=== PATIENT | female | born 1950 | race African-American/Black ===

== ENCOUNTER 2016-12-18 16:10 | Inpatient (IN) ==
[2016-12-18] MEDS ORDERED: KETOROLAC 30 MG/1 ML VIAL IV STA (16:56)
[2016-12-18] MEDS ORDERED: NITROGLYCERIN 2% OINT 1 INCH/GM PACK TOP STA (16:56)
[2016-12-18] MEDS ORDERED: ASPIRIN 325 MG TABLET PO STA (16:56)
[2016-12-18] MEDS ORDERED: ONDANSETRON 4 MG/2 ML VIAL IV STA (16:56)
--- NOTE | 2016-12-18 16:59 | EKG Report ---
Stationary ECG Study 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
--- NOTE | 2016-12-18 16:59 | Emergency Department Note ---
Arrival - Arrival Chief Complaint: Chest Pain Stated Complaint: CHEST PAIN ED Nursing Triage Note: PT WITH CP, JUST SEEN BY DR BE, PT IS SCHEDULED TO HAVE HEART CATH IN THE AM Mode of Arrival: Ambulatory Limitations: No Limitations Source: Patient Time Seen by Provider: 12/18/16 16:56 - History of Present Illness HPI Narrative: This 66-year-old black female presents with onset of chest pain while walking over from Dr. Be's office for preop studies in preparation for cardiac cath tomorrow. The patient states that associated with this chest pain shortness of breath and nausea. She denies diaphoresis or vomiting. She has no prior cardiac history but does have hypertension diabetes. Currently she appears quite anxious. She describes the pain as along the left anterior axillary line and tender to palpation. In bed at rest she is in no acute medical distress. Onset (ago): hour(s) (Patient presents 1 hour post onset of symptoms) Consistency: constant Severity: moderate Severity scale (1-10): 5 Quality: aching Allergies/Adverse Reactions: Allergies Allergy/AdvReac Type Severity Reaction Status Date / Time citric acid Allergy RASH Verified 12/18/16 16:26 codeine Allergy RASH Verified 12/18/16 16:26 iodine Allergy RASH Verified 12/18/16 16:26 lisinopril Allergy RASH Verified 12/18/16 16:26 morphine Allergy RASH Verified 12/18/16 16:26 peanut Allergy RASH Verified 12/18/16 16:26 Penicillins Allergy RASH Verified 12/18/16 16:26 sulfamethoxazole Allergy RASH Verified 12/18/16 16:26 [From Bactrim] trimethoprim [From Bactrim] Allergy RASH Verified 12/18/16 16:26 Home Medications: Home Medications Medication Instructions Recorded Confirmed Type ALPRAZolam [Alprazolam] 0.25 mg PO BID PRN 12/18/16 12/18/16 History Albuterol Inhaler [Proventil 2 puff INH Q6H PRN 12/18/16 12/18/16 History Inhaler] Atorvastatin [Lipitor] 40 mg PO BEDTIME 12/18/16 12/18/16 History Ciprofloxacin Tab [Cipro Tab] 500 mg PO BID 12/18/16 12/18/16 History HYDROcodone/ACETAMIN 10-325 [Thomas 1 tablet PO Q4H PRN 12/18/16 12/18/16 History 10-325] Insulin Detemir [Levemir FlexPen] 45 unit SUBCUT BEDTIME 12/18/16 12/18/16 History Insulin Lispro Protamin/Lispro 0 unit SUBCUT TID W/MEALS PRN 12/18/16 12/18/16 History [HumaLOG Mix 75-25 KwikPen] Oxycodone HCl/Acetaminophen 1 each PO Q6H PRN 12/18/16 12/18/16 History [Percocet 10-325 mg Tablet] Pantoprazole Sodium 40 mg PO BID 12/18/16 12/18/16 History Sertraline [Zoloft] 50 mg PO BEDTIME 12/18/16 12/18/16 History Zolpidem [Ambien] 5 mg PO BEDTIME 12/18/16 12/18/16 History amLODIPine [Norvasc] 5 mg PO DAILY 12/18/16 12/18/16 History Review of System - Review of System 12 point system: reviewed and no additional remarkable complaints except as stated - Review of System Constitutional: Present: as per HPI Respiratory: Present: as per HPI Cardiovascular: Present: as per HPI Gastrointestinal: Present: as per HPI Medical,Surgical,& Family Hx - Medical History Cardio: History of: Hypertension Endocrine: History of: Diabetes Mellitus (IDDM) - Social History Smoking Status: Unknown if ever smoked Exam Physical Examination: GENERAL: Well developed, well nourished black female in no acute distress. HEENT: Normocephalic. No trauma. Moist mucous membranes. EOMI. PERRLA. ENT NML NECK: Supple. No adenopathy. CARDIAC: Regular. No murmurs. Heart rate 82 CHEST: Clear to auscultation. No respiratory distress. O2 sat 100% ABDOMEN: Soft. Nontender. Active bowel sounds. EXTREMITIES: No trauma. Normal ROM. No pedal edema. SKIN: No diaphoresis. No rash. NEURO: Alert. Anxious. Oriented 3. Motor, sensory, vibratory intact. No focal deficits. Vital Signs: Vital Signs Temperature 97.4 F L 12/18/16 17:15 Pulse Rate 73 12/18/16 19:11 Respiratory Rate 21 12/18/16 19:11 Blood Pressure 130/109 12/18/16 19:11 O2 Sat by Pulse Oximetry 100 12/18/16 19:11 Course - Reevaluation(s) Reevaluation #1: Discussed the negative results of her evaluation although the patient was extremely anxious and concerned desirous of admission. - Consultations Consultation #1: Discussed the situation with Dr. Valdes who agreed to admission overnight given the patient's anxiety level. Results - Labs CBC & BMP: 12/18/16 17:10 12/18/16 17:10 Labs: I have noted the dirty urine. I have also noted the negative cardiac's but mild increase in blood glucose. - Impressions EKG: Sinus rhythm at [address] changes poor R-wave progression anteriorly, no acute injury pattern noted. - Diagnostic Findings Procedure: Chest x-ray: image reviewed by me, report reviewed by me (No acute disease, left lower lobe atelectasis with questionable small effusion, venous access catheter noted.) Disposition Clinical Impression: Chest pain, Hypertension, Diabetes Case discussed with: patient, patient's family Disposition: Still a Patient Condition: Stable Time of Disposition: 19:18
[2016-12-18] MEDS ORDERED: NITROGLYCERIN 2% OINT 1 INCH/GM PACK TOP ONE (17:05)
[2016-12-18] MEDS ORDERED: KETOROLAC 30 MG/1 ML VIAL ONE (17:06)
[2016-12-18] MEDS ORDERED: ASPIRIN 325 MG TABLET ONE (17:06)
[2016-12-18] MEDS ORDERED: ONDANSETRON 4 MG/2 ML VIAL ONE (17:06)
[2016-12-18 17:20] LABS: Basophils % 0.5 % (0.0-0.8); Eosinophils # 0.2 10*3/uL (0.0-0.87); Eosinophils % 2.8 % (0.00-10.9); Hematocrit 33.6 VOL% (35.7-47.0); Immature Granulocytes % 0.2 %; Immature Granulocytes Absolute 0.01 #; Lymphocytes % 34.8 % (21.3-54.2); Mean Corpuscular HGB Conc 32.7 GM/DL (32-36); Mean Corpuscular Hemoglobin 30 PG (27-34); Mean Corpuscular Volume 92.6 FL (87-102); Monocytes # 0.4 10*3/uL (0.11-0.8); Monocytes % 6.6 % (1.7-12.7); Neutrophils # 3.2 10*3/uL (1.4-7.4); Neutrophils % 55.1 % (38.7-73.9); Platelet Count 243 T/CUMM (130-400); Red Blood Count 3.63 MC/CUMM (3.8-5.5); Red Cell Distribution Width 13.8 % (9.3-17.3); White Blood Count 5.8 T/CUMM (4-12)
--- NOTE | 2016-12-18 17:29 | XRay Report ---
XR chest 2V Date: 12/18/2016 4:56 PM History: Chest pain Comparison: 07/15/2014 Technique: PA and lateral chest Findings: The heart is minimally enlarged with left subclavian venous access catheter with tip in right atrium. Chronic scarring at the left lung base. Minimal atelectasis/infiltration at the lung bases with very small left pleural effusion. Stable mediastinum with degenerative changes. Impression: Venous access catheter in satisfactory position. Chronic scarring at the left lung base with minimal atelectasis/infiltration at the lung bases with very small left pleural effusion. PROCEDURE INTERPRETED AT [facility] DEPARTMENT OF RADIOLOGY Final Report Signed by: Dr. Kinga Shrestha
[2016-12-18 17:31] LABS: PT Patient Result 10.8 SECS
[2016-12-18 17:40] LABS: Partial Thromboplastin Time 73.2 SECS (0-40)
[2016-12-18 18:06] LABS: Apearance,Urine CLOUDY (Clear); Bacteria,Urine Occasional /HPF (Few); Bilirubin,Urine Negative (Negative); Blood, Urine Negative (Negative); Glucose,Urine (UA) >=500 mg/dL (Negative); Ketones,Urine Negative (Negative); Mucus,Urine Occasional /LPF (Occasional); Nitrite,Urine Negative (Negative); Protein,Urine Negative; RBC,Urine 99 /HPF (0-4); Squamous Epithelial Cell,Urine Occasional /HPF (0-10); Urine Color Yellow (Yellow); Urine Urobilinogen < 2.0 EU/DL (0.2-1.0); WBC,Urine 142 /HPF (0-6)
[2016-12-18] MEDS ORDERED: LEVOFLOXACIN 750 MG TABLET PO STA (18:10)
[2016-12-18 18:12] LABS: Barbiturates Screen,Urine Negative (Negative); Benzodiazepines Screen,Urine Positive (Negative); Cannabinoid Screen,Urine Positive (Negative); Opiate Screen,Urine Negative (Negative); Phencyclidine Screen,Urine Negative (Negative)
[2016-12-18] MEDS ORDERED: LEVOFLOXACIN 750 MG TABLET ONE (18:13)
[2016-12-18 18:48] LABS: Alanine Aminotransferase 21 U/L (13-56); Albumin 3.3 G/DL (3.4-5.0); Alkaline Phosphatase 135 U/L (45-117); Aspartate Amino Transferase 16 U/L (0-37); Blood Urea Nitrogen 14 MG/DL (7-18); Glucose 203 MG/DL (74-106); Osmolality,Calculated 292.8 MOS/KG (273-304); Potassium 3.8 MMOL/L (3.5-5.1); Sodium 144 MMOL/L (136-145); Total Protein 6.2 G/DL (6.4-8.3); Troponin I Only < 0.015 NG/ML (0.00-0.045)
[2016-12-18 18:49] LABS: Calcium 8.5 MG/DL (8.5-10.1)
[2016-12-18] MEDS ORDERED: LORazepam 2 MG/1 ML VIAL IV PRN (19:24)
[2016-12-18] MEDS ORDERED: PANTOPRAZOLE 40 MG VIAL IV STA (19:24)
[2016-12-18] MEDS ORDERED: hydrALAZINE 20 MG/1 ML VIAL IV PRN (19:24)
[2016-12-18] MEDS ORDERED: PANTOPRAZOLE 40 MG VIAL IV ONE (19:38)
[2016-12-18] MEDS ORDERED: POTASSIUM CHLORIDE RIDER 10 MEQ in PREMIX 1 EACH IV PRN (20:47)
[2016-12-18] MEDS ORDERED: MAGNESIUM SULF RIDER 2 GM in PREMIX 1 EACH IV PRN (20:47)
[2016-12-18] MEDS ORDERED: ALPRAZolam 0.25 MG TABLET PO PRN (20:49)
[2016-12-18] MEDS ORDERED: oxyCODONE/ACETAMINOPHEN 5-325 MG TABLET PO PRN (20:49)
[2016-12-18] MEDS ORDERED: GLUCAGON 1 MG VIAL IM PRN (21:06)
[2016-12-18] MEDS ORDERED: DEXTROSE 50% 25 GM/50 ML VIAL IV PRN (21:06)
--- NOTE | 2016-12-18 21:06 | History and Physical Update ---
Sedation H&P Update - History and Physical H&P was reviewed, the patient examined and there: are no changes in the patients condition since last H&P was completed. - Dictation Physical: refer to H&P completed by admitting physician - Physical Exam Mental Status: alert and oriented Heart: regular rate and rhythm Lung: clear to auscultation Abdomen: within normal limits Vitals: within normal limits - Sedation Plan for Sedation: minimal Patient Consent: Procedure disscussed with patient and patinet has consented., Risks and benefits were discussed with patient,including infection,, bleeding, injury to surrounding structures, seizure, temporary nerve, Patient understands and accepts potential risks/benefits and agrees to, proceed. ASA Class: II Airway Assessment: Class II: Soft palate, uvula, fauces visible
[2016-12-18] MEDS: ONDANSETRON 4 MG/2 ML VIAL IV PRN (22:54)
[2016-12-18] MEDS: INSULIN GLARGINE 100 UNIT/ML SUBCUT SCH ×2 (22:59→23:00)
[2016-12-18] MEDS: INSULIN REGULAR 100 UNIT/ML SUBCUT SCH (22:59)
[2016-12-18] MEDS ORDERED: PROMETHAZINE 25 MG/1 ML VIAL IM ONE (23:58)
[2016-12-19] MEDS: ZALEPLON 5 MG CAPSULE PO SCH ×2 (00:24→21:23)
[2016-12-19] MEDS: traMADol 50 MG TABLET PO SCH ×3 (00:24→21:23)
[2016-12-19] MEDS: ACETAMINOPHEN 325 MG TABLET PO SCH ×3 (00:24→22:32)
[2016-12-19] MEDS: SERTRALINE 100 MG TABLET PO SCH ×2 (00:25→21:25)
[2016-12-19] MEDS: GABAPENTIN 100 MG CAPSULE PO SCH ×4 (00:25→21:25)
[2016-12-19] MEDS: CARVEDILOL 3.125 MG TABLET PO SCH ×3 (00:25→21:23)
[2016-12-19] MEDS: PANTOPRAZOLE 40 MG TABLET PO SCH ×3 (00:25→21:23)
[2016-12-19] MEDS: ATORVASTATIN 40 MG TABLET PO SCH ×2 (00:25→21:23)
[2016-12-19] MEDS: CIPROFLOXACIN 500 MG TABLET PO SCH ×3 (00:25→21:23)
[2016-12-19] MEDS: NITROGLYCERIN 2% OINT 1 INCH/GM PACK TOP SCH ×3 (00:51→17:59)
[2016-12-19] MEDS ORDERED: ALBUTEROL 2.5 MG/3 ML NEB RESP TX PRN (01:00)
[2016-12-19] MEDS ORDERED: HEPARIN LOCK FLUSH 500 UNIT/5 ML SYRINGE IV ONE (02:30)
[2016-12-19] MEDS: SODIUM CHLORIDE 0.9% 1,000 ML IV SCH ×2 (07:20→15:55)
--- NOTE | 2016-12-19 07:25 | EKG Report ---
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
[2016-12-19] MEDS: INSULIN REGULAR 100 UNIT/ML SUBCUT SCH ×4 (08:53→21:26)
[2016-12-19] MEDS ORDERED: DIAZEPAM 5 MG TABLET PO ONE (09:00)
[2016-12-19] MEDS ORDERED: ASPIRIN CHEW 81 MG TABLET PO SCH (09:00)
[2016-12-19] MEDS ORDERED: diphenhydrAMINE CAP 25 MG CAPSULE PO ONE (09:00)
[2016-12-19] MEDS: ONDANSETRON 4 MG/2 ML VIAL IV PRN ×2 (09:37→23:52)
[2016-12-19] MEDS: amLODIPine 5 MG TABLET PO SCH (10:00)
[2016-12-19] MEDS ORDERED: diphenhydrAMINE 50 MG/1 ML VIAL ONE (13:30)
[2016-12-19] MEDS ORDERED: FAMOTIDINE 20 MG/2 ML VIAL IV ONE (13:30)
[2016-12-19] MEDS ORDERED: methylPREDNISolone SOD SUC 125 MG/2 ML VIAL ONE (13:30)
[2016-12-19] MEDS ORDERED: MEPERIDINE 25 MG/1 ML VIAL ONE (13:34)
[2016-12-19] MEDS ORDERED: MIDAZOLAM 2 MG/2 ML VIAL ONE (13:34)
[2016-12-19] MEDS ORDERED: LIDOCAINE 1% 20 ML VIAL ONE (13:35)
[2016-12-19] MEDS ORDERED: HEPARIN 5,000 UNIT/1 ML VIAL ONE (13:50)
[2016-12-19] MEDS ORDERED: HYDROmorphone 2 MG/1 ML VIAL ONE (14:09)
[2016-12-19] MEDS ORDERED: ACETAMINOPHEN/CODEINE 300-30 MG TABLET PO PRN (14:20)
[2016-12-19] MEDS ORDERED: GLUCAGON 1 MG VIAL IM PRN (14:20)
[2016-12-19] MEDS ORDERED: DEXTROSE 50% 25 GM/50 ML VIAL IV PRN (14:20)
--- NOTE | 2016-12-19 14:34 | Operative Note ---
Date of procedure: 12/19/16 Procedure Preformed: Left heart cath Coronary angiography Left ventriculography Angiogram of the right femoral artery--by follow-through from the left ventriculogram Angio-Seal of the right femoral artery-successful Surgeon / Physician: Rory Be Bilingual Sales Consultant: Mercy Mora Post-op diagnosis: same (Progressive chest pain consistent with unstable angina , multiple risk factors for coronary disease, progressive dyspnea on exertion, significant increased anxiety) Findings: Impression: No significant coronary disease-minimal luminal irregularities-worst narrowing was 20-30% of the ostium of the ramus intermedius-some of that finding may even be a mach effect Normal global/regional LV systolic function, LVEF greater than 55% Normal LVEDP, less than 5 mmHg Angiogram of the right femoral artery-from follow-through from the left ventriculogram Angio-Seal of the right femoral artery-successful Plan/recommendations: The patient will have risk factors optimized. The patient will be on antiplatelet medications to include aspirin 81 mg daily, indefinitely . It is apparent that her chest pain is not due to fixed, obstructive coronary disease or even spasm, based on her EKG findings and lack of enzyme rise. Thus, my suspicion is it is related to chest wall or muscle skeletal pain. Less likely could be GI related. There could be a component of anxiety which results in the sensation of the pain seeming worse than reality . She also seems to have a low pain threshold. Plan at this point would be to treat for chest wall pain and reassure her about the negative heart cath. If she continues having significant pain, I will refer her to a pain physician for management. I will have her stay on Tylenol, and tramadol for about a week. She will be on gabapentin for about a month. She will do upper body rest to allow any injury or strain of the chest to heel. Follow-up will be scheduled for about 4 weeks for me. She will see Dr. Harlan Hanna within the next 2-4 weeks, also.. My post-cath check to Addenda: I saw the patient post-cath. the groin puncture site and distal pulse are stable. vital signs are stable and the patient will be observed closely overnight. Specimens: none sent Estimated blood loss: minimal Condition: stable Anesthesia: local, conscious sedation Disposition: floor
--- NOTE | 2016-12-19 14:42 | Cardiology Operative Report ---
Date of Procedure:: 12/19/16 Post-op diagnosis: same (Progressive chest pain consistent with unstable angina , multiple risk factors for coronary disease, progressive dyspnea on exertion, significant increased anxiety) Procedure: Date of procedure: 12/19/16 Procedure Preformed: Left heart cath Coronary angiography Left ventriculography Angiogram of the right femoral artery--by follow-through from the left ventriculogram Angio-Seal of the right femoral artery-successful Surgeon / Physician: Rory Be Life Skills Educator: Mercy Mora Post-op diagnosis: same (Progressive chest pain consistent with unstable angina , multiple risk factors for coronary disease, progressive dyspnea on exertion, significant increased anxiety) procedure: The patient was prepped and draped in usual manner. Entered the right femoral artery via the Seldinger technique. I used a sheath and then used a JL4 and engaged left coronary. Multiple views were taken. I then exchanged for a JR4. Multiple views of the right coronary were taken. I then exchanged for an angled pigtail. I crossed the valve. Left ventricular end-diastolic pressures measured. Left ventriculography was done. Left ventricle pullback was done. The catheters were then removed from the patient. Please see the cath data sheets for the details of catheters used. Complications: None Hemodynamic data: LVEDP was < 5 mmHg. Angiographic data: The left main coronary was large and had minimal luminal irregularities. The left anterior descending artery was large and had minimal luminal irregularities. The left circumflex system was moderate to large and had minimal luminal irregularities in the circumflex The ramus intermedius was a large vessel which had minimal luminal irregularities. At the ostium there was maybe a 20-30% narrowing but it may be in part a mock effect because he was seen next to the LAD, circumflex, and left main. The right coronary artery was large in size, dominant vessel with the PDA. There were minimal luminal irregularities in this vessel. All 3 vessels had 3+ distal tortuosities. TAVAREZ left ventriculography revealed normal global/regional left ventricular systolic function. Overall ejection fraction was at least 55%. There is no significant mitral regurgitation. Angiogram of the right femoral artery, by follow-through from the LV gram, revealed the puncture site to be in a large vessel, above the bifurcation. It was suitable for Angio-Seal. Findings: Impression: No significant coronary disease-minimal luminal irregularities-worst narrowing was 20-30% of the ostium of the ramus intermedius-some of that finding may even be a mach effect Normal global/regional LV systolic function, LVEF greater than 55% Normal LVEDP, less than 5 mmHg Angiogram of the right femoral artery-from follow-through from the left ventriculogram Angio-Seal of the right femoral artery-successful Plan/recommendations: The patient will have risk factors optimized. The patient will be on antiplatelet medications to include aspirin 81 mg daily, indefinitely . It is apparent that her chest pain is not due to fixed, obstructive coronary disease or even spasm, based on her EKG findings and lack of enzyme rise. Thus, my suspicion is it is related to chest wall or muscle skeletal pain. Less likely could be GI related. There could be a component of anxiety which results in the sensation of the pain seeming worse than reality . She also seems to have a low pain threshold. Plan at this point would be to treat for chest wall pain and reassure her about the negative heart cath. If she continues having significant pain, I will refer her to a pain physician for management. I will have her stay on Tylenol, and tramadol for about a week. She will be on gabapentin for about a month. She will do upper body rest to allow any injury or strain of the chest to heel. Follow-up will be scheduled for about 4 weeks for me. She will see Dr. Harlan Hanna within the next 2-4 weeks, also.. My post-cath check to Addenda: I saw the patient post-cath. the groin puncture site and distal pulse are stable. vital signs are stable and the patient will be observed closely overnight. Specimens: none sent Estimated blood loss: minimal Condition: stable Anesthesia: local, conscious sedation Disposition: floor Additional CC's: Rory Hanna Anesthesia: local, minimal conscious sedation Surgeon / Physician: Rory Be Life Skills Educator: other Estimated blood loss: minimal Specimens: none sent Condition: stable Disposition: floor
[2016-12-19] MEDS: FAMOTIDINE 20 MG TABLET PO SCH ×2 (16:14→21:23)
[2016-12-19] MEDS: LIDOCAINE 5% PATCH TRANSDERM SCH (16:20)
[2016-12-19] MEDS ORDERED: predniSONE 50 MG TABLET PO ONE (18:00)
[2016-12-19] MEDS: oxyCODONE/ACETAMINOPHEN 5-325 MG TABLET PO PRN (21:24)
[2016-12-19] MEDS: INSULIN GLARGINE 100 UNIT/ML SUBCUT SCH ×2 (21:26→22:32)
[2016-12-20] MEDS ORDERED: INSULIN REGULAR 100 UNIT/ML IV ONE (06:26)
[2016-12-20 07:49] LABS: Hematocrit 34.7 VOL% (35.7-47.0); Hemoglobin 11.2 GM/DL (12.0-16.0); Immature Granulocytes % 0.6 %; Immature Granulocytes Absolute 0.04 #; Lymphocytes # 0.8 10*3/uL (1.4-4.0); Lymphocytes % 12.4 % (21.3-54.2); Mean Corpuscular HGB Conc 32.3 GM/DL (32-36); Mean Corpuscular Hemoglobin 30 PG (27-34); Mean Corpuscular Volume 93.3 FL (87-102); Mean Platelet Volume 11.2 FL (9.6-12.0); Monocytes # 0.1 10*3/uL (0.11-0.8); Neutrophils # 5.4 10*3/uL (1.4-7.4); Platelet Count 240 T/CUMM (130-400); Red Blood Count 3.72 MC/CUMM (3.8-5.5); Red Cell Distribution Width 13.8 % (9.3-17.3); White Blood Count 6.3 T/CUMM (4-12)
--- NOTE | 2016-12-20 07:55 | EKG Report ---
Stationary ECG Study [facility] Test Date: 12/20/2016 7:54:14 AM Pat Name: FOREST SUAREZ Department: Room: 241 Gender: F Department Specialist: : 1950 Requested by: Rory Be Order Number: [id number] Reading MD: CABRERA SIMS Intervals [place] Rate: 73 P: 58 IA: 165 QRS: 0 QRSD: 91 T: 37 QT: 375 QTc: 401 Interpretive Statements SINUS RHYTHM LOW QRS VOLTAGE IN PRECORDIAL LEADS Electronically Signed On 12-22-16 06:32:51 CDT by CABRERA SIMS [email or web address]
[2016-12-20 08:20] LABS: Calcium 8.3 MG/DL (8.5-10.1); Magnesium 1.9 MG/DL (1.8-2.4); Osmolality,Calculated 301.8 MOS/KG (273-304); Potassium 4.1 MMOL/L (3.5-5.1)
[2016-12-20] MEDS: ACETAMINOPHEN 325 MG TABLET PO SCH ×2 (08:23→11:07)
[2016-12-20] MEDS: INSULIN REGULAR 100 UNIT/ML SUBCUT SCH ×2 (08:23→11:43)
[2016-12-20] MEDS: amLODIPine 5 MG TABLET PO SCH (08:23)
[2016-12-20] MEDS: traMADol 50 MG TABLET PO SCH (08:24)
[2016-12-20] MEDS: GABAPENTIN 100 MG CAPSULE PO SCH (08:24)
[2016-12-20] MEDS: CIPROFLOXACIN 500 MG TABLET PO SCH (08:24)
[2016-12-20] MEDS: LIDOCAINE 5% PATCH TRANSDERM SCH (08:25)
[2016-12-20] MEDS: PANTOPRAZOLE 40 MG TABLET PO SCH (08:25)
[2016-12-20] MEDS: FAMOTIDINE 20 MG TABLET PO SCH (08:25)
[2016-12-20] MEDS: CARVEDILOL 3.125 MG TABLET PO SCH (08:25)
[2016-12-20] MEDS: oxyCODONE/ACETAMINOPHEN 5-325 MG TABLET PO PRN (08:36)
[2016-12-20] MEDS ORDERED: ASPIRIN CHEW 81 MG TABLET PO SCH (09:00)
[2016-12-20] MEDS: ONDANSETRON 4 MG/2 ML VIAL IV PRN (09:32)
--- NOTE | 2016-12-20 11:30 | Discharge Summary ---
Hospital Course - Hospital Course Hospital Course: Discrete and presented for heart catheterization by Dr. Be December 19. She probably was quite anxious about having significant coronary artery disease. Her heart catheterization yesterday showed only minimal disease. Her right groin access site is without bleeding bruit or hematoma. She will have to a nursing staff because her glucose was high during the night and she says she was asked to use her own glucose monitor. She requested medicine to go home with for nausea that she has intermittently. She is minimally stable. This totally she is received maximal hospital benefit and discharged home. Specialty Discharge - Follow Up or Referrals Follow up with: Harlan Hanna [Physician] - Rory Be MD [Physician] - Discharge Plan - Discharge Medications No Action Albuterol Inhaler [Proventil Inhaler] 2 puff INH Q6H PRN PRN Reason: Shortness Of Breath/Wheezing ALPRAZolam [Alprazolam] 0.25 mg PO BID PRN PRN Reason: Anxiety amLODIPine [Norvasc] 5 mg PO DAILY Atorvastatin [Lipitor] 40 mg PO BEDTIME Insulin Detemir [Levemir FlexPen] 45 unit SUBCUT BEDTIME Sertraline [Zoloft] 50 mg PO BEDTIME Ciprofloxacin Tab [Cipro Tab] 500 mg PO BID Oxycodone HCl/Acetaminophen [Percocet 10-325 mg Tablet] 1 each PO BID PRN PRN Reason: Pain Pantoprazole Sodium 40 mg PO BID Ranitidine Tab [Zantac Tab] 150 mg PO BID Carvedilol [Coreg] 3.125 mg PO BID Insulin Lispro Protamin/Lispro [HumaLOG Mix 75-25 KwikPen] 0 unit SUBCUT TID W/MEALS PRN PRN Reason: BS >150 SLIDING SCALE predniSONE TAB [PredniSONE] 50 mg PO DIRECTED - Follow Up or Referral Follow Up: Rory Be MD [Physician] - Harlan Hanna [Physician] - - Forms/Instructions Exam - Constitutional Vitals: Period Temp Pulse Resp BP Sys/Aguirre Pulse Ox Last 24 Hr 97 F-98.6 F 64-98 16-20 102-141/60-79 93-100 General appearance: no acute distress, over weight - Head Head exam: Present: normal inspection, normocephalic, atraumatic - Neck Neck exam: Present: normal inspection - Respiratory Respiratory exam: Present: clear to auscultation bilaterally - Cardiovascular Cardiovascular exam: Present: regular rate and rhythm. Absent: diastolic murmur , rubs - GI/Abdominal GI/Abdominal exam: Present: soft. Absent: tenderness - Extremities Exam Extremities exam: Present: other. Absent: edema Discharge Results Procedures and tests throughout hospitalization: Pending Orders 12/19/16 07:21 CL heart Routine Labs on day of discharge: Labs from last 24 hours 12/20/16 12/20/16 12/20/16 10:47 07:38 07:38 WBC 6.3 RBC 3.72 L Hgb 11.2 L Hct 34.7 L MCV 93.3 MCH 30 MCHC 32.3 RDW 13.8 Plt Count 240 MPV 11.2 Neut % (Auto) 86.0 H Lymph % (Auto) 12.4 L [place] % (Auto) 1.0 L Eos % (Auto) 0.0 Baso % (Auto) 0.0 Neut # (Auto) 5.4 Lymph # (Auto) 0.8 L [place] # (Auto) 0.1 L Eos # (Auto) 0.0 Baso # (Auto) 0.0 Immature Gran % 0.6 Nucleated RBC % 0.0 Immature Gran # 0.04 Nucleated RBCs # 0.00 Sodium 144 Potassium 4.1 Chloride 106 Carbon Dioxide 26 Anion Gap 16.1 H BUN 21 H Creatinine 1.00 GFR Calculation 83 BUN/Creatinine Ratio 21.00 H Glucose 334 H POC Glucose 279 H Calculated Osmolality 301.8 Calcium 8.3 L Magnesium 1.9 12/20/16 12/20/16 12/19/16 07:20 01:22 16:13 WBC RBC Hgb Hct MCV MCH MCHC RDW Plt Count MPV Neut % (Auto) Lymph % (Auto) [place] % (Auto) Eos % (Auto) Baso % (Auto) Neut # (Auto) Lymph # (Auto) [place] # (Auto) Eos # (Auto) Baso # (Auto) Immature Gran % Nucleated RBC % Immature Gran # Nucleated RBCs # Sodium Potassium Chloride Carbon Dioxide Anion Gap BUN Creatinine GFR Calculation BUN/Creatinine Ratio Glucose POC Glucose 361 H 436 H 279 H Calculated Osmolality Calcium Magnesium 12/19/16 11:07 WBC RBC Hgb Hct MCV MCH MCHC RDW Plt Count MPV Neut % (Auto) Lymph % (Auto) [place] % (Auto) Eos % (Auto) Baso % (Auto) Neut # (Auto) Lymph # (Auto) [place] # (Auto) Eos # (Auto) Baso # (Auto) Immature Gran % Nucleated RBC % Immature Gran # Nucleated RBCs # Sodium Potassium Chloride Carbon Dioxide Anion Gap BUN Creatinine GFR Calculation BUN/Creatinine Ratio Glucose POC Glucose 183 H Calculated Osmolality Calcium Magnesium DS: Provider Date of admission: 12/18/16 19:23 Primary care physician: . No PCP Attending physician on admission: Rory Be MD Consults: 12/18/16 22:21 Consult to Dietitian [CONS] Routine Reason for Dietitian: Dietary Consult Consult to Pastoral Services [CONS] Routine Comment: Pastoral Screen: Request Cutter Grinder Operator Visit Pastoral Screen Source of Request: Patient Discharging clinician: Landon Prieto
[2016-12-20] MEDS ORDERED: HEPARIN LOCK FLUSH 500 UNIT/5 ML SYRINGE IV ONE (12:00)
[2016-12-20 13:25] VITALS: BP 119/67
== END 2016-12-20 14:02 | disposition home or self-care (01) | DRG 287 ==
LOC: N.ED 16:10 → N.EDINP 19:23 → N.2E 20:43
PROVIDERS: ADMIT Internal Medicine Cardiovascular Disease; ATTEND Internal Medicine Cardiovascular Disease
PROC: CLCCHCL (ICD-10-PCS; 2016-12-19 13:45)